=== PATIENT | female | born 1965 | race Caucasian/White ===

== ENCOUNTER 2020-04-29 12:59 | Outpatient (CLI) | payer OTHER ==
[2020-04-29 13:19] LABS: Bilirubin Negative (Negative); Blood, Urine Trace (Negative); Glucose, Urine (Dipstick) Negative (Negative); Leukocyte Moderate (Negative); Nitrite Positive (Negative); Protein, Urine (Dipstick) Negative (Neg-Trace); Urobilinogen 0.2 mg/dL (Less than 2)
[2020-04-29 13:21] LABS: Clarity Hazy (Clear)
== END 2020-04-29 13:00 | disposition home or self-care (01) ==
LOC: MADLAB 12:59
PROVIDERS: ATTEND Family Medicine
DX: Z00.00 Encounter for general adult medical examination without abnormal findings (principal)
CPT/HCPCS: 81003

== ENCOUNTER 2023-03-08 19:31 | Outpatient (CLI) | payer BC | END 2023-03-08 19:32 | disposition home or self-care (01) | LOC: MADRAD 19:31 | PROVIDERS: ATTEND Urology | DX: N20.0 Calculus of kidney (principal) | CPT/HCPCS: 74019 ==